=== PATIENT | female | born 1950 | race Caucasian/White ===

== ENCOUNTER 2017-11-09 10:45 | Emergency (ER) | payer BC, OTHER ==
--- NOTE | 2017-11-09 11:00 | PDOC ---
History of Present Illness - General Chief Complaint: Bite Stated Complaint: DOG BITE LEFT ARM Time Seen by Provider: 11/09/17 10:59 History Source: Patient Exam Limitations: No Limitations - History of Present Illness Initial Comments: 66 yo F history hypothyroid presents with dog bite to L upper arm. 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 She states that she saw a neighbor with a larger dog, the dog got away from the neighbor and ran towards her. She sustained a bite from the neighbor's dog. This is a known dog, has had similar behavior in the past. This is not out of the ordinary, and the dog is up to date on shots. She cleaned the wound with hibiclens and water prior to arrival. Last tetanus in 2014. Past History - Past Medical History Allergies/Adverse Reactions: Allergies Allergy/AdvReac Type Severity Reaction Status Date / Time No Known Allergies Allergy Verified 11/09/17 10:50 Home Medications: Ambulatory Orders Amox-Tr/K Cl [Augmentin - 875Mg Tablet] 1 tab PO BID #14 tablet 11/09/17 Calcium Carb, Citrate/Vit D3 [Citracal + D ER Tablet] 1 each PO HS 11/09/17 Cholecalciferol (Vitamin D3) [Vitamin D] 2,000 unit PO HS 11/09/17 L.acidoph,Paracasei, B.lactis [Probiotic] 1 each PO DAILY 11/09/17 Levothyroxine [Synthroid -] 100 mcg PO DAILY 11/09/17 Magnesium 250 mg PO HS 11/09/17 [place]-3/Dha/Epa/Fish Oil [Fish Oil 1,000 mg Softgel] 1 each PO DAILY 11/09/17 Oxycodone HCl/Acetaminophen [Percocet 10-325 mg Tablet] 1 each PO BID 11/09/17 Vitamin B Complex/Folic Acid [Vitamin B-100 Complex Tablet] 0.4 mg PO HS Review of Systems - Review of Systems Able to Perform ROS?: Yes Comments:: GENERAL/CONSTITUTIONAL: No fever or chills. No weakness. HEAD, EYES, EARS, NOSE AND THROAT: No change in vision. No ear pain or discharge. No sore throat. MUSCULOSKELETAL: No joint or muscle swelling or pain. No neck or back pain. SKIN: No rash. +Laceration to L upper arm with accompanying puncture peng. NEUROLOGIC: No headache, vertigo, loss of consciousness, or change in strength/ sensation. HEMATOLOGIC/LYMPHATIC: No anemia, easy bleeding, or history of blood clots. ALLERGIC/IMMUNOLOGIC: No hives or skin allergy. *Physical Exam - Physical Exam Comments: GENERAL: Awake, alert, and fully oriented, in no acute distress HEAD: No signs of trauma EXTREMITIES: Normal range of motion, no edema. No clubbing or cyanosis. No cords, erythema, or tenderness NEUROLOGICAL: Cranial nerves II through XII grossly intact. Normal speech, normal gait SKIN: Warm, Dry, normal turgor. No rashes. +L-shaped 2.5 cm laceration to the L lateral upper arm, with protrusion of subcutaneous fat, slight oozing of blood. No surrounding erythema. + 2 puncture peng to the inner surface of the upper arm, no active bleeding, with small skin avulsion to both. Procedures - Laceration/Wound Repair Left Upper Arm Wound Length: to 2.5 cm Wound Explored: clean, no foreign body present Wound's Depth, Shape: superficial (L-shaped) Irrigated w/ Saline: Yes Anesthesia: 1% Lidocaine Amount of Anesthetic (ccs): 2 Wound Repaired With: Sutures Suture Size/Type: 5:0 Number of Sutures: 4 Sterile Dressing Applied: Yes Medical Decision Making - Medical Decision Making 11/09/17 12:06 The larger wound was closed due to depth. Four sutures placed, patient tolerated well. For the puncture peng, there was no active bleeding, and there were small skin avulsions. In the absence of bleeding, wounds were not closed, as they would have a poor cosmetic appearance due to the skin avulsions. Bacitracin applied, as well as sterile dressing. Patient tolerated well. Started on augmentin in ED. Dog bite reported. *DC/Admit/Observation/Transfer Diagnosis at time of Disposition: Laceration Dog bite Qualifiers: Encounter type: initial encounter Qualified Code(s): W54.0XXA - Bitten by dog, initial encounter - Discharge Dispostion Disposition: HOME Condition at time of disposition: Improved Decision to Admit order: No - Prescriptions Prescriptions: Amox-Tr/K Cl [Augmentin - 875Mg Tablet] 1 tab PO BID #14 tablet - Referrals Referrals: Shayne Piper MD [Primary Care Provider] - - Patient Instructions Printed Discharge Instructions: DI for Laceration Repair, DI for Dog Bite Additional Instructions: Return to the ER between November 18- to have sutures removed. Take augmentin as prescribed to prevent infection. For the first 24 hours, please keep wound dry. After that it is ok to get it wet. Do not soak, and do not apply any lotions, creams, or soaps. When you are outside or interacting with animals, it is best to cover with gauze to prevent contamination. If you develop severe pain, redness, swelling, drainage of pus, red streaks on your arm, or fever, return to the ER immediately. - Post Discharge Activity
[2017-11-09 11:14] VITALS: BP 152/78; PULSE 88; TEMP 98.3; BMI 17.7
[2017-11-09] MEDS ORDERED: AMOX TR/POT CLAV 875MG/125MG TABLETS (FP) PO ONE (11:20)
[2017-11-09] MEDS ORDERED: AMOX TR/POT CLAV 875MG/125MG TABLETS (FP) ONE (11:23)
== END 2017-11-09 11:56 | disposition home or self-care (01) ==
LOC: FER 10:45
PROC: 0HQBXZZ Repair Right Upper Arm Skin, External Approach (ICD-10-PCS; principal; 2017-11-09)
DX: S41.111A Laceration without foreign body of right upper arm, initial encounter (principal); W54.0XXA Bitten by dog, initial encounter; Y93.K1 Activity, walking an animal; Y92.410 Unspecified street and highway as the place of occurrence of the external cause; Y99.0 Civilian activity done for income or pay; E03.9 Hypothyroidism, unspecified
CPT/HCPCS: 99282-25

== ENCOUNTER 2017-11-18 14:17 | Emergency (ER) | payer OTHER ==
--- NOTE | 2017-11-18 14:18 | PDOC ---
Suture Removal/Wound Check HPI - History of Present Illness Chief Complaint: Suture/Staple Removal(Here) Stated Complaint: SUTURE REMOVAL Time Seen by Provider: 11/18/17 14:18 History Source: Yes: Patient Exam Limitations: Yes: No Limitations Treated at: [facility] ED Date of Last ED visit: 11/09/17 - Previous ED Treatment Type of procedure performed on last visit: Yes: Laceration Repair Tetanus Immunization: Yes: Up to Date Antibiotics Prescribed: Yes - Onset of Previous Treatment Date of Occurence: 11/09/17 Comment:: 66 yo F presents for suture removal. She states the laceration has been healing well. No redness, swelling, pain. No fever, no rashes. She took abx as prescribed. Past History - Past Medical History Allergies/Adverse Reactions: Allergies Allergy/AdvReac Type Severity Reaction Status Date / Time No Known Allergies Allergy Verified 11/18/17 14:17 Home Medications: Ambulatory Orders Amox-Tr/K Cl [Augmentin - 875Mg Tablet] 1 tab PO BID #14 tablet 11/09/17 Calcium Carb, Citrate/Vit D3 [Citracal + D ER Tablet] 1 each PO HS 11/09/17 Cholecalciferol (Vitamin D3) [Vitamin D] 2,000 unit PO HS 11/09/17 L.acidoph,Paracasei, B.lactis [Probiotic] 1 each PO DAILY 11/09/17 Levothyroxine [Synthroid -] 100 mcg PO DAILY 11/09/17 Magnesium 250 mg PO HS 11/09/17 [place]-3/Dha/Epa/Fish Oil [Fish Oil 1,000 mg Softgel] 1 each PO DAILY 11/09/17 Oxycodone HCl/Acetaminophen [Percocet 10-325 mg Tablet] 1 each PO BID 11/09/17 Vitamin B Complex/Folic Acid [Vitamin B-100 Complex Tablet] 0.4 mg PO HS COPD: No Seizures: Yes - Surgical History Appendectomy: Yes - Immunization History TDAP Vaccination: Yes (03/19/2015) Immunization Up to Date: Yes - Suicide/Smoking/Psychosocial Hx Smoking History: Smoker current status UNK Hx Alcohol Use: Yes Drug/Substance Use Hx: No Substance Use Type: None *Review of Systems - Review of Systems Able to Perform ROS?: Yes Comments:: GENERAL/CONSTITUTIONAL: No fever or chills. No weakness. MUSCULOSKELETAL: No joint or muscle swelling or pain. No neck or back pain. SKIN: No rash *Physical Exam - Physical Exam Comments: GENERAL: Awake, alert, and fully oriented, in no acute distress SKIN: Warm, Dry, normal turgor, no rashes. +Healing laceration to L upper arm, no erythema, no drainage. Procedures - Additional Procedures Progress: Sutures removed without difficulty. Patient tolerated well. Steristrips placed. Stable for DC home. *DC/Admit/Observation/Transfer Diagnosis at time of Disposition: Visit for suture removal - Discharge Dispostion Disposition: HOME Condition at time of disposition: Stable Decision to Admit order: No - Referrals - Patient Instructions Printed Discharge Instructions: DI for Suture Removal - Post Discharge Activity
[2017-11-18 14:23] VITALS: BP 161/90; PULSE 73; TEMP 98.3; BMI 18.3
== END 2017-11-18 14:26 | disposition home or self-care (01) ==
LOC: FER 14:17
DX: Z48.02 Encounter for removal of sutures (principal)
CPT/HCPCS: 99281-25

== ENCOUNTER 2019-12-20 07:34 | Emergency (ER) | payer OTHER ==
[2019-12-20 07:42] VITALS: BP 123/70; PULSE 80; TEMP 98.1; BMI 17.7
--- NOTE | 2019-12-20 08:01 | PDOC ---
History of Present Illness - General Chief Complaint: Wound Stated Complaint: cat bite &scratch Time Seen by Provider: 12/20/19 07:39 History Source: Patient Exam Limitations: No Limitations - History of Present Illness Initial Comments: 12/20/19 08:50 69YOF with h/o Sjogren's syndrome p/w cat bites to left dorsum of hand and right index finger sustained yesterday at 10am while she was taking her fully- vaccinated cat to the vet to be euthanized. She notes the left hand and right index finger started becoming swollen and painful at 2pm yesterday and has worsened. Denies any drainage from the wounds, any known foreign body, streaking redness, f/c/n/v/d/c, abdominal pain, or other symptoms. Did not try taking medications but tried icing the area with some relief. Past History - Medical History Allergies/Adverse Reactions: Allergies Allergy/AdvReac Type Severity Reaction Status Date / Time No Known Allergies Allergy Verified 12/20/19 09:31 Home Medications: Ambulatory Orders Amox-Tr/K Cl [Augmentin - 875Mg Tablet] 1 tab PO BID #14 tablet 11/09/17 Calcium Carb, Citrate/Vit D3 [Citracal + D ER Tablet] 1 each PO HS 11/09/17 Cholecalciferol (Vitamin D3) [Vitamin D] 2,000 unit PO HS 11/09/17 L.acidoph,Paracasei, B.lactis [Probiotic] 1 each PO DAILY 11/09/17 Levothyroxine [Synthroid -] 100 mcg PO DAILY 11/09/17 Magnesium 250 mg PO HS 11/09/17 [place]-3/Dha/Epa/Fish Oil [Fish Oil 1,000 mg Softgel] 1 each PO DAILY 11/09/17 Oxycodone HCl/Acetaminophen [Percocet 10-325 mg Tablet] 1 each PO BID 11/09/17 Vitamin B Complex/Folic Acid [Vitamin B-100 Complex Tablet] 0.4 mg PO HS 11/09/17 Amox-Tr/K Cl [Augmentin - 875Mg Tablet] 1 tab PO BID #28 tablet 12/20/19 COPD: No Seizures: Yes - Surgical History Appendectomy: Yes - Immunization History TDAP Vaccination: Yes (03/19/2015) Immunization Up to Date: Yes - Psycho-Social/Smoking History Smoking History: Smoker current status UNK Review of Systems - Review of Systems Able to Perform ROS?: Yes Comments:: 12/20/19 08:53 GEN: no fever, chills, generalized weakness, or malaise HEENT: no ear pain, eye pain, throat pain or swelling, nosebleed, vision change, or loose teeth SKIN: cuts and puncture wounds, skin redness/warmth, no bruises CV: no chest pain, palpitations, or LOC RESP: no cough or SOB GI: no abdominal pain, nausea, vomiting, or black/bloody stool : no hematuria or flank pain/bruising MSK: no muscle weakness, muscle pain, or joint pain NECK/BACK: no neck pain, back pain, or trauma reported NEURO: no headache, seizure, numbness, tingling, focal weakness, or incontinence PSYCH: no suicidality, homicidality, or substance use *Physical Exam - Vital Signs 12/20/19 08:54 Initial Vital Signs Temp Pulse Resp BP Pulse Ox 98.1 F 80 18 123/70 100 12/20/19 07:37 12/20/19 07:37 12/20/19 07:37 12/20/19 07:37 12/20/19 07:37 - Physical Exam 12/20/19 08:54 GENERAL: very well-appearing, a bit tearful speaking about her cat who was euthanized yesterday, A/Ox4, but nontoxic, answers questions appropriately HEENT: PERRLA, EOMI, moist mucous membranes NECK/BACK: no midline ttp, no spinal step-off or deformity, no hematoma, full ROM, neck supple CARDIOVASCULAR: regular rate/rhythm, no MGR, strong peripheral pulses, capillary refill <2 seconds, extremities wwp, no edema LUNGS/RESPIRATORY: no respiratory distress, CTAB GI/ABDOMEN: symmetric [id number], normoactive BS, soft, no ttp, no midline pulsatile masses : no CVA tenderness MSK/EXTREMITIES: no muscle atrophy, no acute deformity SKIN: left dorsum of hand with swelling, erythema, and warmth diffusely and extending up to distal forearm, center of dorsum of hand with scabbed 2mm diameter puncture wound, right index finger with superficial skin tear stated from tooth scrape with surrounding erythema, warmth, and tenderness extending to base of index finger but no pain on active ROM, no drainage from any wound, warm and dry, no pallor, no jaundice, no rash, no pathologic-appearing bruising, no skin breakdown, no cuts, no lesions NEUROLOGICAL: GCS 15, CN II-XII grossly intact, 5/5 strength proximally and distally, no facial droop ED Treatment Course - LABORATORY CBC & Chemistry Diagram: 12/20/19 07:50 12/20/19 07:50 - RADIOLOGY Radiology Studies Ordered: Category Date Time Status HAND- LEFT [RAD] Stat Radiology 12/20/19 07:40 Ordered Medical Decision Making - Medical Decision Making 12/20/19 08:04 69YOF p/w cat bites now with cellulitis. Initial Vital Signs Temp Pulse Resp BP Pulse Ox 98.1 F 80 18 123/70 100 12/20/19 07:37 12/20/19 07:37 12/20/19 07:37 12/20/19 07:37 12/20/19 07:37 The patient has cellulitis of left dorsum of hand and distal forearm. She is upfront that she cannot stay in the hospital, and after lengthy conversation about the risk of deep space infection and abscess formation and hematogenous spread she makes informed decision not to stay and knows she will ultimately sign out AMA. However she does agree to blood work, XR of the left hand, and doses of IV antibiotics here in the ED. I will also give her Augmentin as outpa tient and invite her to return to the ED if she changes her mind, or if she does not change her mind then to f/u with her PCP as soon as possible. Provider Orders Category Date Time Status C-REACTIVE PROTEIN Stat Lab 12/20/19 07:50 Completed CBC WITH DIFFERENTIAL Stat Lab 12/20/19 07:50 Completed COMP METABOLIC PANEL Stat Lab 12/20/19 07:50 Completed ERYTHROCYTE SEDIMENTATION RATE Stat Lab 12/20/19 07:50 Completed Ceftriaxone [Rocephin -] Medication 12/20/19 08:21 Discontinued 2 gm .ROUTE .STK-MED ONE Ceftriaxone [Rocephin -] 2,000 mg Medication 12/20/19 08:03 Discontinued Dextrose 5%-Water - [D5w -] 50 ml IVPB ONCE metroNIDAZOLE 500 MG PREMIXED [Flagyl 500Mg Premixed Medication 12/20/19 08:03 Discontinued Ivpb -] 500 mg in 100 ml IVPB ONCE metroNIDAZOLE 500 MG PREMIXED [Flagyl 500Mg Premixed Medication 12/20/19 08:22 Discontinued Ivpb -] 500 mg in 100 ml IVPB UD BLOOD CULTURE Stat Micro 12/20/19 08:15 Completed IV Insert NOW Phy Order 12/20/19 07:40 Completed Saline Lock, Insert ONCE Phy Order 12/20/19 07:45 Ordered HAND- LEFT [RAD] Stat Radiology 12/20/19 07:40 Completed Medications Discontinued Medications Generic Name Dose Route Start Last Admin Trade Name Satish PRN Reason Stop Dose Admin Ceftriaxone Sodium Confirm 12/20/19 08:21 Rocephin - Administered 12/20/19 08:22 Dose 2 gm .ROUTE .STK-MED ONE Ceftriaxone Sodium 2,000 mg/ 50 mls @ 100 mls/hr 12/20/19 08:03 12/20/19 09:15 Dextrose IVPB 12/20/19 08:32 100 mls/hr ONCE ONE Administration Metronidazole 500 mg in 100 mls @ 100 mls/hr 12/20/19 08:03 12/20/19 08:25 Flagyl 500mg Premixed Ivpb - IVPB 12/20/19 09:02 100 mls/hr ONCE ONE Administration Metronidazole Confirm 12/20/19 08:22 Flagyl 500mg Premixed Ivpb - Administered 12/20/19 08:23 Dose 500 mg in 100 mls @ ud IVPB .STK-MED ONE Microbiology Tests 12/20/19 08:15 Blood Culture - Final Blood - Peripheral Venous NO GROWTH AFTER 5 DAYS INCUBATION 12/20/19 08:15 Blood Culture - Final Blood - Peripheral Venous NO GROWTH AFTER 5 DAYS INCUBATION Lab Results WBC 7.5 K/mm3 (4.0-10.8) 12/20/19 07:50 RBC 3.68 M/mm3 (3.60-5.2) 12/20/19 07:50 Hgb 12.4 GM/dl (10.7-15.3) 12/20/19 07:50 Hct 39.0 % (32.4-45.2) 12/20/19 07:50 MCV 105.8 fl (80-96) H 12/20/19 07:50 MCH 33.7 pg (25.7-33.7) 12/20/19 07:50 MCHC 31.9 g/dl (32.0-36.0) L 12/20/19 07:50 RDW 13.4 % (11.6-15.6) 12/20/19 07:50 Plt Count 182 K/MM3 (134-434) 12/20/19 07:50 MPV 8.1 fl (7.5-11.1) 12/20/19 07:50 Absolute Neuts (auto) 6.0 K/mm3 12/20/19 07:50 Neutrophils % 79.4 % (42.8-82.8) 12/20/19 07:50 Lymphocytes % 12.2 % (8-40) 12/20/19 07:50 Monocytes % 7.9 % (3.8-10.2) 12/20/19 07:50 Eosinophils % 0.0 % (0-4.5) 12/20/19 07:50 Basophils % 0.5 % (0-2.0) 12/20/19 07:50 ESR 7 mm/hr (0-30) 12/20/19 07:50 Sodium 137 mmol/L (136-145) 12/20/19 07:50 Potassium 3.9 mmol/L (3.5-5.1) 12/20/19 07:50 Chloride 102 mmol/L (98-107) 12/20/19 07:50 Carbon Dioxide 27 mmol/L (21-32) 12/20/19 07:50 Anion Gap 8 MMOL/L (8-16) 12/20/19 07:50 BUN 18.0 mg/dl (7-18) 12/20/19 07:50 Creatinine 0.8 mg/dl (0.55-1.3) 12/20/19 07:50 Est GFR (CKD-EPI)AfAm 86.57 12/20/19 07:50 Est GFR (CKD-EPI)NonAf 74.70 12/20/19 07:50 Random Glucose 116 mg/dl (74-106) H 12/20/19 07:50 Calcium 9.4 mg/dl (8.5-10) 12/20/19 07:50 Total Bilirubin 1.6 mg/dl (0.2-1) H 12/20/19 07:50 AST 25 U/L (15-37) 12/20/19 07:50 ALT 6 U/L (13-61) L 12/20/19 07:50 Alkaline Phosphatase 78 U/L (45-117) 12/20/19 07:50 C-Reactive Protein 7.1 MG/DL (0.00-0.3) H 12/20/19 07:50 Total Protein 6.9 g/dl (6.4-8.2) 12/20/19 07:50 Albumin 4.3 g/dl (3.4-5.0) 12/20/19 07:50 Discharge - Discharge Information Problems reviewed: Yes Clinical Impression/Diagnosis: Cat bite Qualifiers: Encounter type: initial encounter Qualified Code(s): W55.01XA - Bitten by cat, initial encounter Cellulitis Qualifiers: Site of cellulitis: extremity Site of cellulitis of extremity: upper extremity Laterality: unspecified laterality Qualified Code(s): L03.119 - Cellulitis of unspecified part of limb Condition: Stable Disposition: AGAINST MEDICAL ADVICE - Admission No - Additional Discharge Information Prescriptions: Amox-Tr/K Cl [Augmentin - 875Mg Tablet] 1 tab PO BID #28 tablet - Follow up/Referral Referrals: Riya Pavon RN [Primary Care Provider] - - Patient Discharge Instructions Patient Printed Discharge Instructions: DI for Cat Bite Additional Instructions: You were seen in the ER for cat bites/scratches with skin infections called cellulitis. We did lab work and an X-ray, and gave you two IV antibiotics while you were here in the ER, and recommended admission to the hospital for continued treatment and observation to make sure the infection does not get worse (cat bite/scratch infections are particularly risky). You chose to sign out against medical advice after our conversation, which is completely your choice and your right, but please do come back BIMAL if you change your mind. Again, these infections can be very serious. 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 Start the course today at 5pm and take the pills exactly as prescribed on the prescription label. Finish the course of antibiotics whether or not your symptoms resolve. Follow up with your PCP on Monday, or if you change your mind about admission please come back to the ER. Especially come back for new or worsening symptoms, especially if the redness and swelling spreads or worsens, or if you develop fever, chills, abscess collection of pus under the skin, or pus drainage from the bite/scratch wounds. - Post Discharge Activity
[2019-12-20] MEDS ORDERED: CEFTRIAXONE 2,000 MG in DEXTROSE 5%-WATER - 50 ML IVPB ONE (08:03)
[2019-12-20 08:42] LABS: BASO % 0.5 % (0-2.0); HEMOGLOBIN 12.4 GM/dl (10.7-15.3); LYMPH % 12.2 % (8-40); MCH 33.7 pg (25.7-33.7); MCHC 31.9 g/dl (32.0-36.0); MEAN CELL VOLUME 105.8 fl (80-96); MEAN PLT VOLUME 8.1 fl (7.5-11.1); MONO % 7.9 % (3.8-10.2); NEUT % 79.4 % (42.8-82.8); PLATELET COUNT 182 K/MM3 (134-434); RBC 3.68 M/mm3 (3.60-5.2); RDW 13.4 % (11.6-15.6); WHITE BLOOD COUNT 7.5 K/mm3 (4.0-10.8)
[2019-12-20 08:51] LABS: ALBUMIN 4.3 g/dl (3.4-5.0); BILIRUBIN,TOTAL 1.6 mg/dl (0.2-1); CALCIUM 9.4 mg/dl (8.5-10); CREATININE 0.8 mg/dl (0.55-1.3); POTASSIUM 3.9 mmol/L (3.5-5.1); TOT PROT 6.9 g/dl (6.4-8.2)
[2019-12-20 09:33] LABS: ERYTHROCYTE SEDIMENTATION RATE 7 mm/hr (0-30)
== END 2019-12-20 09:38 | disposition left against medical advice (07) ==
LOC: FER 07:34
PROC: 3E03329 Introduction of Other Anti-infective into Peripheral Vein, Percutaneous Approach (ICD-10-PCS; principal; 2019-12-20)
PROC: 3E033GC Introduction of Other Therapeutic Substance into Peripheral Vein, Percutaneous Approach (ICD-10-PCS; 2019-12-20)
DX: L03.114 Cellulitis of left upper limb (principal); L03.011 Cellulitis of right finger
CPT/HCPCS: 36415; 73130-TC-LT-FY; 80053; 85025; 85651; 86140; 87040; 99284-25

== ENCOUNTER 2021-05-24 11:21 | Emergency (ER) | payer OTHER ==
[2021-05-24 11:32] VITALS: TEMP 98.3; BMI 17.7
[2021-05-24 14:42] VITALS: BP 145/71; PULSE 68
== END 2021-05-24 14:54 | disposition home or self-care (01) ==
LOC: FER 11:21
DX: S52.502A Unspecified fracture of the lower end of left radius, initial encounter for closed fracture (principal); S52.602A Unspecified fracture of lower end of left ulna, initial encounter for closed fracture; W00.0XXA Fall on same level due to ice and snow, initial encounter; Y93.K1 Activity, walking an animal
CPT/HCPCS: 73110-TC-LT-FY; 73130-TC-LT-FY; 99283-25